=== PATIENT | female | born 1985 | race Caucasian/White ===

== ENCOUNTER → 2020-09-15 | Outpatient (CLI) | payer OTHER ==
[~2020-09-15] MED LIST: CYCLOBENZAPRINE10 MG PO; IBUPROFEN800 MG PO
== END ==
LOC: KOH-I 09:00
DX: R51.9 Headache, unspecified (principal); J32.3 Chronic sphenoidal sinusitis
CPT/HCPCS: 70551; 93005

== ENCOUNTER 2020-09-18 09:57 | Emergency (ER) | payer OTHER ==
[2020-09-18 10:39] LABS: HEMOGLOBIN 14.9 gm/dl (12.3-15.3); RED BLOOD COUNT 4.77 M/UL (4.00-5.10); WHITE BLOOD COUNT 8.9 K/UL (4.5-11.0)
[2020-09-18 10:59] LABS: BUN/CREATININE RATIO 16 (0-10)
[2020-09-18] MEDS ORDERED: CYCLOBENZAPRINE10 MG PO (11:53)
[2020-09-18] MEDS ORDERED: IBUPROFEN800 MG PO (11:53)
== END 2020-09-18 12:42 | disposition home or self-care (01) ==
LOC: ER1 09:57
PROVIDERS: Emergency Medicine
DX: S30.1XXA Contusion of abdominal wall, initial encounter (principal); S20.212A Contusion of left front wall of thorax, initial encounter; S80.11XA Contusion of right lower leg, initial encounter; S16.1XXA Strain of muscle, fascia and tendon at neck level, initial encounter; V49.50XA Passenger injured in collision with unspecified motor vehicles in traffic accident, initial encounter; Y92.410 Unspecified street and highway as the place of occurrence of the external cause
CPT/HCPCS: 36415; 70450; 71045; 71260; 72070; 72100; 72125; 72170; 73552; 80053; 83605; 84703; 85025; 85610; 85730; 86850; 86900; 86901; 99285; G0480; Q9967